=== PATIENT | female | born 1975 | race Caucasian/White ===

== ENCOUNTER 2016-09-22 13:42 | Emergency (ER) | payer OTHER ==
[~2016-09-22] VITALS: Ht 160 cm; Wt 64.3 kg
[~2016-09-22 13:42] MED LIST: ADDE30TA PO; IBUP800T23 PO; ORPH100T PO; TRAM50 PO
[2016-09-22 13:51] VITALS: BP 139/90; PULSE 80; RESP 16; TEMP 98.3; O2SAT 99
[2016-09-22] MEDS ORDERED: ADDE30TA PO (14:06)
[2016-09-22] MEDS ORDERED: MECLIZINE HCL 25 MG TAB PO ONE (14:45)
[2016-09-22] MEDS ORDERED: SODIUM CHLOR 0.9% 1000 ML INJ 1,000 ML IV SCH (14:45)
[2016-09-22 14:54] VITALS: BP 159/79; PULSE 67; RESP 16; O2SAT 98
[2016-09-22 15:04] LABS: AUTOMATED NEUTROPHIL # 5.5 TH/MM3 (1.8-7.7); BASOPHIL % 0.5 % (0.0-2.0); EOSINOPHIL # 0.2 TH/MM3 (0-0.4); EOSINOPHIL % 1.7 % (0.0-4.0); HEMATOCRIT 39.3 % (35.0-46.0); HEMO FLAGS DIFF FINAL; LYMPH % 29.8 % (9.0-44.0); LYMPHOCYTE # 2.8 TH/MM3 (1.0-4.8); MEAN CELL VOLUME 89.5 FL (80.0-100.0); MEAN CORPUSCULAR HEMOGLOBIN 30.1 PG (27.0-34.0); MEAN CORPUSCULAR HGB CONC 33.7 % (32.0-36.0); MONO % 8.5 % (0.0-8.0); NEUT % 59.5 % (16.0-70.0); PLATELET COUNT 306 TH/MM3 (150-450); RED BLOOD COUNT 4.39 MIL/MM3 (4.00-5.30); RED CELL DISTRIBUTION WIDTH 12.7 % (11.6-17.2); WHITE BLOOD COUNT 9.3 TH/MM3 (4.0-11.0)
[2016-09-22 15:11] LABS: BLOOD, URINE SMALL (NEG); GLUCOSE,URINE NEG (NEG); KETONE, URINE NEG (NEG); PH, URINE 5.5 (5.0-8.5)
[2016-09-22 15:12] LABS: CHLORIDE 104 MEQ/L (98-107); POTASSIUM 3.3 MEQ/L (3.5-5.1); SODIUM (NA) 139 MEQ/L (136-145)
[2016-09-22 15:14] LABS: NITRITE,URINE POS (NEG)
[2016-09-22 15:15] LABS: METHOD OF COLLECTION CLEAN CATCH; URINE COLOR YELLOW (YELLW/STRAW)
[2016-09-22 15:16] LABS: ANION GAP 8 MEQ/L (5-15); BICARBONATE 26.8 MEQ/L (21.0-32.0); BLOOD UREA NITROGEN 16 MG/DL (7-18)
[2016-09-22 15:17] LABS: BACTERIA, URINE MANY /hpf; SQUAMOUS EPITHELIAL CELL URINE 0-5 /hpf (0-5)
[2016-09-22 15:18] LABS: COMMENT (UR) MUCOUS PRESENT
[2016-09-22 15:19] LABS: ALT (GPT) 31 U/L (10-53); AST (GOT) 23 U/L (15-37); GLOMERULAR FILTRATION RATE 89 ML/MIN (>89)
[2016-09-22 15:20] LABS: TOTAL BILIRUBIN ADULT 0.2 MG/DL (0.2-1.0)
[2016-09-22 15:22] LABS: ALKALINE PHOSPHATASE 58 U/L (45-117)
[2016-09-22] MEDS ORDERED: MACR100C2 PO (15:28)
[2016-09-22] MEDS ORDERED: MECL-62 PO (15:28)
--- NOTE | 2016-09-22 15:28 | PD ---
HPI Chief Complaint: Dizziness Time Seen by Provider: 14:20 Travel History International Travel<30 days: No Contact w/Intl Traveler<30days: No Traveled to known affect area: No History of Present Illness HPI So 40 year-old woman who presents to the emergency department complaining of dizziness. She describes fairly nondescript dizziness without clear vertigo- like symptoms that started last night. It got worse this morning. Is worse with standing. She describes feeling as though the sensation as a feeling of when he first woke over the edge of a catia but persistent. She's had nausea. She has some occasional sharp pains on the right eye that she's had before. She 's never had trouble with dizziness or vertigo or near syncope before. She otherwise has been feeling generally well and healthy. No changes in her hearing or vision. No numbness tingling or weakness. No other complaints. History Past Medical History Narrative Medical ADHD, on Adderall Tetanus Vaccination: > 5 Years Influenza Vaccination: No LMP: 2 weeks ago : 2 Para: 0 Social History Alcohol Use: Yes (OCCASIONALLY) Tobacco Use: Yes (1/2 PPD) Allergies-Medications (Allergen,Severity, Reaction): Coded Allergies: Sulfa (Verified Allergy, Mild, HIVES, 09/22/16) Bactrim (Verified Allergy, Unknown, 09/22/16) Reported Meds & Prescriptions Reported Meds & Active Scripts Active Reported Adderall (Amphetamine-Dextroamphetamine) 30 Mg Tab 30 Mg PO DAILY Avoid late evening doses. Space doses at least 4 to 6 hours if more than once/day dosing. Review of Systems Except as stated in HPI: all other systems reviewed are Neg Physical Exam Narrative GENERAL: Well-appearing 40 year-old woman, no acute distress. SKIN: Focused skin assessment warm/dry. HEAD: Atraumatic. Normocephalic. CARDIOVASCULAR: Regular rate and rhythm. No murmur appreciated. RESPIRATORY: No accessory muscle use. Clear to auscultation. Breath sounds equal bilaterally. GASTROINTESTINAL: Abdomen soft, non-tender, nondistended. Hepatic and splenic margins not palpable. MUSCULOSKELETAL: No obvious deformities. No edema. NEUROLOGICAL: Awake and alert. No obvious cranial nerve deficits. Normal finger to nose. Normal [id number]. Motor grossly within normal limits. Normal speech. Normal gait. PSYCHIATRIC: Appropriate mood and affect; insight and judgment normal. Data Data Last Documented VS Vital Signs Date Time Temp Pulse Resp B/P Pulse Ox O2 Delivery O2 Flow Rate FiO2 09/22/16 14:54 67 16 159/79 98 Room Air 09/22/16 13:51 98.3 Orders Complete Blood Count With Diff (09/22/16 14:33) Comprehensive Metabolic Panel (09/22/16 14:33) Ed Urine Pregnancytest Poc (09/22/16 14:33) Ua Includes Microscopic (09/22/16 14:33) Iv Access Insert/Monitor (09/22/16 14:33) Meclizine (Antivert) (09/22/16 14:45) Sodium Chlor 0.9% 1000 Ml Inj (Ns 1000 M (09/22/16 14:45) Labs Laboratory Tests Test 09/22/16 09/22/16 14:40 14:45 Urine Collection Type CLEAN CATCH Urine Color YELLOW Urine Turbidity SLIGHT Urine pH 5.5 Urine Specific [place] 1.025 Urine Protein NEG mg/dL Urine Glucose (UA) NEG mg/dL Urine Ketones NEG mg/dL Urine Occult Blood SMALL Urine Nitrite POS Urine Bilirubin NEG Urine Leukocyte Esterase NEG Urine RBC 4-9 /hpf Urine WBC 3-5 /hpf Urine Squamous Epithelial 0-5 /hpf Cells Urine Amorphous Sediment FEW Urine Bacteria MANY /hpf Microscopic Urinalysis Comment MUCOUS PRESENT Urine Collection Time 1440 White Blood Count 9.3 TH/MM3 Red Blood Count 4.39 MIL/MM3 Hemoglobin 13.2 GM/DL Hematocrit 39.3 % Mean Corpuscular Volume 89.5 FL Mean Corpuscular Hemoglobin 30.1 PG Mean Corpuscular Hemoglobin 33.7 % Concent Red Cell Distribution Width 12.7 % Platelet Count 306 TH/MM3 Mean Platelet Volume 8.1 FL Neutrophils (%) (Auto) 59.5 % Lymphocytes (%) (Auto) 29.8 % Monocytes (%) (Auto) 8.5 % Eosinophils (%) (Auto) 1.7 % Basophils (%) (Auto) 0.5 % Neutrophils # (Auto) 5.5 TH/MM3 Lymphocytes # (Auto) 2.8 TH/MM3 Monocytes # (Auto) 0.8 TH/MM3 Eosinophils # (Auto) 0.2 TH/MM3 Basophils # (Auto) 0.0 TH/MM3 CBC Comment DIFF FINAL Differential Comment Sodium Level 139 MEQ/L Potassium Level 3.3 MEQ/L Chloride Level 104 MEQ/L Carbon Dioxide Level 26.8 MEQ/L Anion Gap 8 MEQ/L Blood Urea Nitrogen 16 MG/DL Creatinine 0.73 MG/DL Estimat Glomerular Filtration 89 ML/MIN Rate Random Glucose 92 MG/DL Calcium Level 9.3 MG/DL Total Bilirubin 0.2 MG/DL Aspartate Amino Transf 23 U/L (AST/SGOT) Alanine Aminotransferase 31 U/L (ALT/SGPT) Alkaline Phosphatase 58 U/L Total Protein 7.4 GM/DL Albumin 3.7 GM/DL [facility] Medical Decision Making Medical Screen Exam Complete: Yes Emergency Medical Condition: Yes Interpretation(s) CBC is unremarkable CMP is unremarkable UA has positive nitrites and some packed red blood cells with many bacteria Differential Diagnosis Weakness, dizziness, anemia, instability, unsteadiness, electrolyte abnormality , dehydration, other Narrative Course Medical decision making 40 year-old woman with nondescript dizziness starting last night. Looks well. No clear etiology. No evidence of neurologic disease. UA shows positive nitrites with bacteria and 49 red blood cells. Not significant pyuria. We'll send for culture. Given lack of alternative explanation we'll treat for UTI. Diagnosis Primary Impression: Dizziness Additional Impression: UTI (urinary tract infection) Additional Instructions: Drink plenty of fluids stay well-hydrated. Take Macrobid as prescribed. Use meclizine if needed for dizziness. Return to the emergency department for any new or worsening symptoms. Med/Other Pt SpecificInfo: Prescription(s) given Scripts Meclizine 25 Mg Tab25 Mg PO TID PRN (VERTIGO) #6 TAB Ref 0 Prov:Cam Ortiz MD 09/22/16 Nitrofurantoin Monohydrate Macrocrystals (Macrobid)100 Mg [id number] Mg PO BID 5 Days Ref 0 Prov:Cam Ortiz MD 09/22/16 Disposition: 01 DISCHARGE HOME Condition: Stable Cam Ortiz MD Sep 22, 2016 15:28
[2016-09-22 15:58] VITALS: BP 146/79
== END 2016-09-22 16:00 | disposition home or self-care (01) ==
LOC: PHED 13:42
DX: R42 Dizziness and giddiness (principal); N39.0 Urinary tract infection, site not specified; F17.210 Nicotine dependence, cigarettes, uncomplicated; R11.0 Nausea; B96.20 Unspecified Escherichia coli [E. coli] as the cause of diseases classified elsewhere
CPT/HCPCS: 80053; 81001; 84703; 85025; 87077; 87086; 87186; 96360; 99284; J7030